=== PATIENT | female | born 1950 | race Caucasian/White ===

== ENCOUNTER → 2017-03-24 | Outpatient (CLI) | payer BC ==
[~2017-03-24] MED LIST: MAXALT5 MG PO; MOBIC 7.5MG7.5 MG PO; PREMARIN .3MG0.3 MG PO
[2017-03-24 07:59] LABS: HEMOGLOBIN 14.7 g/dl (12.5-16.0); MEAN CELL VOLUME 95 fl (80.0-100.0); MEAN CORPUSCULAR HEMOGLOBIN 31 pg (27.0-31.0); MEAN CORPUSCULAR HGB CONC 33 g/dl (33.0-37.0); PLATELET COUNT 223 K/mm3 (130-400); RED BLOOD COUNT 4.75 M/mm3 (4.10-5.30); REDCELL DISTRIBUTION WIDTH-CV 13.1 % (11.5-14.5)
[2017-03-24 08:12] LABS: ALBUMIN 4.4 gm/dL (3.5-5.0); BILIRUBIN,TOTAL 0.4 mg/dL (0.0-1.0); CALCIUM 9.6 mg/dL (8.4-10.2); CHOLESTEROL RISK RATIO 2.8; CREATININE, serum 0.72 mg/dL (0.52-1.25); POTASSIUM 4.5 mmol/L (3.4-5.0); TOTAL PROTEIN 7.3 gm/dL (6.4-8.2)
[2017-03-24 08:41] LABS: THYROID STIMULATING HORMONE 3.42 uIU/mL (0.465-4.680)
== END ==
LOC: COL.LAB 07:31
PROVIDERS: Family Medicine
DX: Z00.00 Encounter for general adult medical examination without abnormal findings (principal)

== ENCOUNTER → 2017-04-25 | Outpatient (CLI) | payer BC | LOC: MC.RAD 11:14 | DX: Z12.31 Encounter for screening mammogram for malignant neoplasm of breast (principal); R92.8 Other abnormal and inconclusive findings on diagnostic imaging of breast ==

== ENCOUNTER → 2017-05-02 | Outpatient (CLI) | payer BC | LOC: MC.RAD 11:51 | DX: R92.8 Other abnormal and inconclusive findings on diagnostic imaging of breast (principal) ==

== ENCOUNTER → 2017-10-24 | Outpatient (CLI) | payer BC | LOC: COL.RAD 11:05 | DX: F45.8 Other somatoform disorders (principal) ==

== ENCOUNTER → 2018-03-27 | Outpatient (CLI) | payer BC ==
[2018-03-27 10:32] LABS: ALBUMIN 4.1 gm/dL (3.5-5.0); BILIRUBIN,TOTAL 0.5 mg/dL (0.0-1.0); CALCIUM 9.3 mg/dL (8.4-10.2); CHOLESTEROL RISK RATIO 3.4; CREATININE, serum 0.8 mg/dL (0.52-1.25); TOTAL PROTEIN 7.1 gm/dL (6.4-8.2)
[2018-03-27 11:03] LABS: THYROID STIMULATING HORMONE 1.66 uIU/mL (0.465-4.680)
== END ==
LOC: COL.LAB 09:40
PROVIDERS: Family Medicine
DX: Z00.00 Encounter for general adult medical examination without abnormal findings (principal); Z13.1 Encounter for screening for diabetes mellitus; Z13.220 Encounter for screening for lipoid disorders

== ENCOUNTER → 2018-03-27 | Outpatient (CLI) | payer BC ==
[2018-03-29 02:23] LABS: SJOGRENS SSA 105 U/mL (0-99); SJOGRENS SSB 14 U/mL (0-99)
== END ==
LOC: COL.LAB 09:46
PROVIDERS: Optometrist
DX: M35.00 Sjogren syndrome, unspecified (principal)

== ENCOUNTER → 2018-04-12 | Outpatient (CLI) | payer BC | LOC: COL.RAD 10:02 | DX: J18.9 Pneumonia, unspecified organism (principal) ==

== ENCOUNTER 2018-07-10 08:45 | Outpatient (RCR) | payer BC | END 2018-10-01 | disposition home or self-care (01) | LOC: WSST | DX: R09.89 Other specified symptoms and signs involving the circulatory and respiratory systems (principal) ==

== ENCOUNTER → 2018-07-11 | Outpatient (CLI) | payer BC | LOC: COL.RAD 10:47 | DX: R13.10 Dysphagia, unspecified (principal); R09.89 Other specified symptoms and signs involving the circulatory and respiratory systems ==

== ENCOUNTER 2020-02-28 11:30 | Outpatient (RCR) | payer OTHER ==
[~2020-02-28 11:30] MED LIST changes: +NORCO 325 MG-51 TAB PO
== END 2020-03-03 | disposition home or self-care (01) ==
LOC: MKS.ESL.OT
DX: M77.02 Medial epicondylitis, left elbow (principal)

== ENCOUNTER 2020-03-25 14:30 | Outpatient (RCR) | payer OTHER | END 2020-06-02 | disposition home or self-care (01) | LOC: MKS.ESL.OT | DX: M77.02 Medial epicondylitis, left elbow (principal) ==

== ENCOUNTER → 2020-04-09 | Outpatient (CLI) | payer MEDICARE, BC ==
[2020-04-09 09:53] LABS: BASO % 0.2 % (0.0-2.0); EOS % 0.1 % (0-4.0); GRAN # 12.6 (1.4-6.5); GRAN % 81.5 % (42.2-75.2); HEMATOCRIT 43.4 % (37.0-47.0); HEMOGLOBIN 14.3 g/dl (12.5-16.0); LYMPH # 1.4 (1.2-3.4); LYMPH % 8.7 % (20.0-51.0); MEAN CELL VOLUME 94 fl (80.0-100.0); MEAN CORPUSCULAR HEMOGLOBIN 31 pg (27.0-31.0); MEAN CORPUSCULAR HGB CONC 33 g/dl (33.0-37.0); MEAN PLATELET VOLUME 11.6 fl (7.4-10.4); MONO # 1.4 (0.1-0.6); PLATELET COUNT 159 K/mm3 (130-400); RED BLOOD COUNT 4.64 M/mm3 (4.10-5.30); REDCELL DISTRIBUTION WIDTH-CV 13.3 % (11.5-14.5)
[2020-04-09 10:11] LABS: ALBUMIN 4.8 gm/dL (3.5-5.0); BILIRUBIN,TOTAL 0.7 mg/dL (0.0-1.0); CALCIUM 9.7 mg/dL (8.4-10.2); CHOLESTEROL RISK RATIO 3.4; CREATININE, serum 0.68 (0.52-1.25); POTASSIUM 4.6 mmol/L (3.4-5.0); TOTAL PROTEIN 8.5 gm/dL (6.4-8.2)
[2020-04-09 10:41] LABS: TSH w REFLEX 3.41 uIU/mL (0.465-4.680)
== END ==
LOC: COL.LAB
PROVIDERS: Family Medicine
DX: E78.5 Hyperlipidemia, unspecified (principal)

== ENCOUNTER → 2020-05-06 | Outpatient (CLI) | payer BC, MEDICARE | LOC: MC.RAD | DX: Z12.31 Encounter for screening mammogram for malignant neoplasm of breast (principal); R92.0 Mammographic microcalcification found on diagnostic imaging of breast; N63.10 Unspecified lump in the right breast, unspecified quadrant; N63.20 Unspecified lump in the left breast, unspecified quadrant; Z98.82 Breast implant status ==

== ENCOUNTER → 2020-05-13 | Outpatient (CLI) | payer BC, MEDICARE | LOC: MC.RAD 05-12 07:00 | DX: R92.0 Mammographic microcalcification found on diagnostic imaging of breast (principal); R92.1 Mammographic calcification found on diagnostic imaging of breast ==

== ENCOUNTER → 2020-12-02 | Outpatient (CLI) | payer MEDICARE, BC ==
[2020-12-02 09:02] LABS: BASO % 0.6 % (0.0-2.0); EOS # 0.1 (0.0-0.7); GRAN # 2.9 (1.4-6.5); GRAN % 58.5 % (42.2-75.2); HEMATOCRIT 42.8 % (37.0-47.0); HEMOGLOBIN 14.2 g/dl (12.5-16.0); LYMPH # 1.4 (1.2-3.4); LYMPH % 28.5 % (20.0-51.0); MEAN CELL VOLUME 91 fl (80.0-100.0); MEAN CORPUSCULAR HEMOGLOBIN 30 pg (27.0-31.0); MEAN CORPUSCULAR HGB CONC 33 g/dl (33.0-37.0); MEAN PLATELET VOLUME 10.5 fl (7.4-10.4); MONO # 0.5 (0.1-0.6); MONO % 10.2 % (1.7-9.3); PLATELET COUNT 222 K/mm3 (130-400); REDCELL DISTRIBUTION WIDTH-CV 13.5 % (11.5-14.5)
[2020-12-02 09:27] LABS: BILIRUBIN,TOTAL 0.6 mg/dL (0.2-1.2); CALCIUM 9.6 mg/dL (8.4-10.2); CREATININE, serum 0.79 mg/dL (0.57-1.11); POTASSIUM 4.2 mmol/L (3.5-4.5); TOTAL PROTEIN 7.5 gm/dL (6.2-8.1)
[2020-12-02 09:48] LABS: THYROID STIMULATING HORMONE 2.939 uIU/mL (0.350-4.940)
== END ==
LOC: COL.LAB 08:24
PROVIDERS: Family Medicine
DX: R53.83 Other fatigue (principal)

== ENCOUNTER 2021-09-21 09:30 | Outpatient (RCR) | payer OTHER | END 2021-09-27 | disposition home or self-care (01) | LOC: MKS.ESL.PT | DX: G56.22 Lesion of ulnar nerve, left upper limb (principal) ==

== ENCOUNTER 2021-10-20 09:45 | Outpatient (RCR) | payer OTHER | END 2021-10-28 | disposition home or self-care (01) | LOC: MKS.ESL.PT | DX: G56.22 Lesion of ulnar nerve, left upper limb (principal) ==

== ENCOUNTER → 2023-08-16 | Outpatient (CLI) | payer MEDICARE, BC | LOC: MC.RAD 10:01 | DX: Z12.31 Encounter for screening mammogram for malignant neoplasm of breast (principal); N64.89 Other specified disorders of breast ==